=== PATIENT | female | born 2000 | race Caucasian/White ===

== ENCOUNTER 2022-05-30 11:27 | Outpatient (CLI) | payer OTHER ==
[2022-05-31] MEDS ORDERED: PRENATAL TABLE1 EAC3 (11:27)
== END 2022-05-30 18:38 | disposition home or self-care (01) ==
LOC: OBS/DEL 11:27
PROVIDERS: ATTEND Specialist
DX: O47.1 False labor at or after 37 completed weeks of gestation (principal); Z3A.38 38 weeks gestation of pregnancy

== ENCOUNTER 2022-05-31 10:57 | Inpatient (IN) | payer OTHER ==
[~2022-05-31] VITALS: Ht 157.5 cm; Wt 106.1 kg
[2022-05-31] MEDS ORDERED: PRENATAL TABLE1 EAC3 (11:27)
== END 2022-06-02 11:30 | disposition home or self-care (01) | DRG 807 ==
LOC: OBS/DEL 10:57 → OB/GYN 13:45 → LDR 13:45 → OB/GYN 20:07
PROVIDERS: ADMIT Specialist; ATTEND Specialist
PROC: 10E0XZZ Delivery of Products of Conception, External Approach (ICD-10-PCS; principal; 2022-05-31)
PROC: 0UQG7ZZ Repair Vagina, Via Natural or Artificial Opening (ICD-10-PCS; 2022-05-31)
PROC: 4A1HXCZ Monitoring of Products of Conception, Cardiac Rate, External Approach (ICD-10-PCS; 2022-05-31)
DX: O71.4 Obstetric high vaginal laceration alone (principal); Z37.0 Single live birth; Z3A.38 38 weeks gestation of pregnancy; Z20.822 Contact with and (suspected) exposure to COVID-19